=== PATIENT | male | born 1985 | race African-American/Black ===

== ENCOUNTER 2018-12-13 08:20 | Emergency (ER) | payer OTHER ==
[2018-12-13 08:27] VITALS: BMI 25.7
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
[2018-12-13 09:26] LABS: BASO % 0.9 % (0-2.0); EOS % 1.6 % (0-4.5); HEMATOCRIT 48.8 % (35.4-49); HEMOGLOBIN 15.8 GM/dL (11.7-16.9); LYMPH % 27.5 % (8-40); MCH 26.1 pg (25.7-33.7); MCHC 32.3 g/dl (32.0-35.9); MEAN CELL VOLUME 80.7 fl (80-96); MEAN PLT VOLUME 8.6 fl (7.5-11.1); MONO % 6.7 % (3.8-10.2); NEUT % 63.3 % (42.8-82.8); PLATELET COUNT 208 K/MM3 (134-434); RBC 6.05 M/mm3 (4.00-5.60); WHITE BLOOD COUNT 5.9 K/mm3 (4.0-10.0)
[2018-12-13 09:54] LABS: ALBUMIN 3.9 g/dl (3.4-5.0); BILIRUBIN,TOTAL 0.3 mg/dL (0.2-1); BLOOD UREA NITROGEN 12.8 mg/dL (7-18); CALCIUM 9.6 mg/dL (8.5-10.1); CREATININE 1.2 mg/dL (0.55-1.3)
--- NOTE | 2018-12-13 12:09 | EKG ---
Test Reason : Blood Pressure : / mmHG Vent. Rate : 080 BPM Atrial Rate : 080 BPM P-R Int : 134 ms QRS Dur : 084 ms QT Int : 370 ms P-R-T Axes : 041 012 -02 degrees QTc Int : 426 ms NORMAL SINUS RHYTHM NONSPECIFIC T WAVE ABNORMALITY ABNORMAL ECG NO PREVIOUS ECGS AVAILABLE Confirmed by BALWINDER HERNANDEZ, MIRIAM ([id number]) on 12/13/2018 12:09:27 PM Referred By: Confirmed By:MIRIAM BRITT MD
[2018-12-13 12:31] VITALS: BP 148/85; PULSE 89; TEMP 98
== END 2018-12-13 13:15 | disposition home or self-care (01) ==
LOC: JER 08:20
DX: R07.9 Chest pain, unspecified (principal); Z91.013 Allergy to seafood; Z88.0 Allergy status to penicillin
CPT/HCPCS: 36415; 71046-TC-FY; 80053; 82550; 82553; 84484; 85025; 93005; 93010; 99283-25